=== PATIENT | male | born 2000 | race Asian ===

== ENCOUNTER 2019-08-13 02:21 | Emergency (ER) | payer OTHER ==
[~2019-08-13] VITALS: Ht 175.3 cm; Wt 65.8 kg
--- NOTE | 2019-08-13 03:09 | NUR ---
TECH AT BEDSIDE FOR EKG
[2019-08-13] MEDS ORDERED: diphenhydrAMINE HCL 50 MG/ML VIAL ONE (03:25)
[2019-08-13] MEDS ORDERED: METOCLOPRAMIDE HCL 10 MG/2 ML VIAL ONE (03:25)
[2019-08-13] MEDS ORDERED: METOCLOPRAMIDE HCL 10 MG/2 ML VIAL IV ONE (03:30)
[2019-08-13] MEDS ORDERED: IV NS 0.9% 1,000 ML BAG IV ONE (03:30)
[2019-08-13] MEDS ORDERED: diphenhydrAMINE HCL 50 MG/ML VIAL IV ONE (03:30)
--- NOTE | 2019-08-13 03:35 | NUR ---
PT MEDICATED ORDERED.
[2019-08-13 03:43] LABS: BASOPHILS % (AUTO) 0.2 % (0.0-2.0); CALCIUM, SERUM 8.9 mg/dL (8.5-10.1); CARBON DIOXIDE 29 mmol/L (21-32); CHLORIDE 101 mmol/L (98-107); CREATININE 1.1 mg/dL (0.6-1.3); EOSINOPHILS % (AUTO) 0.5 % (0.0-6.0); GLUCOSE 105 mg/dL (74-106); HEMATOCRIT 45 % (39-51); HEMOGLOBIN 15.5 g/dL (13.5-17.5); LYMPHOCYTES # (AUTO) 0.8 /CMM (0.8-4.8); LYMPHOCYTES % (AUTO) 9.3 % (20.0-44.0); MEAN CORPUSCULAR HGB CONC 34 g/dl (31.0-36.0); MEAN CORPUSCULAR VOLUME 87 fL (80-96); MONOCYTES # (AUTO) 0.5 /CMM (0.1-1.30); MONOCYTES % (AUTO) 5.7 % (2.0-12.0); NEUTROPHILS % (AUTO) 84.3 % (43.0-81.0); PLATELET COUNT (AUTO) 212 /CMM (150-450); POTASSIUM 3.7 mmol/L (3.5-5.1); SODIUM SERUM 138 mmol/L (136-145); UREA NITROGEN, BLOOD 15 mg/dL (7-18); WHITE BLOOD COUNT (AUTO) 8.3 K/uL (4.3-11.0)
[2019-08-13 03:49] LABS: ALANINE AMINOTRANSFERASE 25 U/L (12-78); ALBUMIN 3.8 g/dL (3.4-5.0); ALKALINE PHOSPHATASE 79 U/L (46-116); ASPARTATE AMINOTRANSFERASE 17 U/L (15-37); BILIRUBIN,DIRECT 0.1 mg/dL (0.0-0.2); BILIRUBIN,TOTAL 0.6 mg/dL (0.2-1.0); LIPASE 132 U/L (73-393); TOTAL PROTEIN, SERUM 7.5 g/dL (6.4-8.2)
--- NOTE | 2019-08-13 06:17 | NUR ---
IV removed. Catheter intact and site benign. Pressure and 4x4 applied to site. No bleeding noted. Patient discharged to home in stable condition. Written and verbal after care instructions given. Patient verbalizes understanding of instruction. ambulatory with a steady gait noted. pt aaox4 no acute distress noted, resp even and unlabored. pt S/O at bedside to take pt home.
[2019-08-13 06:18] VITALS: BP 109/62
== END 2019-08-13 06:18 | disposition home or self-care (01) ==
LOC: ER 02:25
DX: E86.0 Dehydration (principal); B34.9 Viral infection, unspecified; J45.909 Unspecified asthma, uncomplicated; F17.200 Nicotine dependence, unspecified, uncomplicated
CPT/HCPCS: 36415; 71045; 80048; 80076; 83690; 84484; 85025; 96361; 96374; 96375; 99284; J1200; J2765; J7030

== ENCOUNTER 2019-12-28 00:40 | Emergency (ER) | payer OTHER ==
[~2019-12-28] VITALS: Ht 175.3 cm; Wt 72.6 kg
--- NOTE | 2019-12-28 01:14 | NUR ---
PATIENT CAME TO ER BED 9 C/O FEVER, DIARRHEA, SORE THROAT, DRY COUGH SINCE YESTERDAY. PATIENT IS AAOX4. NO SOB. BREATHING EVENLY AND UNLABORED ON ROOM AIR. CONNECTED TO MONITOR.
--- NOTE | 2019-12-28 01:16 | NUR ---
LAB CALLED FOR SPECIMEN TESTING KITS.
[2019-12-28] MEDS ORDERED: ACETAMINOPHEN 325 MG TABLET PO ONE (01:30)
[2019-12-28] MEDS ORDERED: ACETAMINOPHEN ES 500 MG TABLET ONE (01:33)
--- NOTE | 2019-12-28 01:53 | NUR ---
flu, strep, and covid test sample retrieved and sent to lab.
[2019-12-28 02:23] VITALS: BP 114/65
== END 2019-12-28 02:24 | disposition home or self-care (01) ==
LOC: ER 00:40
DX: B34.9 Viral infection, unspecified (principal); Z20.828 Contact with and (suspected) exposure to other viral communicable diseases; J45.909 Unspecified asthma, uncomplicated
CPT/HCPCS: 87070; 87804; 87880; 99283; C9803; U0003; 86403-TC